=== PATIENT | female | born 1955 | race Caucasian/White ===

== ENCOUNTER → 2016-11-08 | Outpatient (CLI) | payer BC ==
[~2016-11-08] MED LIST: LAMO200T38 PO; PANT40TA PO; SYN100 PO
--- NOTE | 2016-11-08 18:01 | DIAGNOSTIC IMAGING REPORT ---
L FOOT MIN 3 VIEWS ROUTINE HISTORY: 61 years-old Female DISPLACED UNSPECIFIED FRACTURE OF L GREAT TOE known fracture of the left proximal phalanx with persistent pain. COMPARISON: None available. TECHNIQUE: 3 views of the left foot FINDINGS: There is a subacute fracture involving the mid and distal portions of the first proximal phalanx appears mildly comminuted and is nondisplaced and nonangulated without definite intra-articular extension. Mild soft tissue swelling is noted about the first digit and along the dorsal forefoot. Mild to moderate first MTP osteoarthritis. Degenerative changes are also noted throughout the interphalangeal joints. No additional acute fracture or dislocation. IMPRESSION: 1. Subacute appearing nondisplaced and non-angulated mildly comminuted fracture of the first proximal phalanx with mild associated soft tissue swelling. 2. Mild to moderate first MTP osteoarthritis. The above report was generated using voice recognition software. It may contain grammatical, syntax or spelling errors. Electronically signed by: Patrick Eddy M.D. 11/08/2016 6:00 PM Dictated Date/Time: 11/08/2016 5:57 PM
== END | disposition home or self-care (01) ==
LOC: C.RAD 17:06
PROVIDERS: ATTEND Family Medicine
DX: S92.402A Displaced unspecified fracture of left great toe, initial encounter for closed fracture (principal); X58.XXXA Exposure to other specified factors, initial encounter

== ENCOUNTER → 2016-11-22 | Outpatient (CLI) | payer BC ==
--- NOTE | 2016-11-22 17:28 | DIAGNOSTIC IMAGING REPORT ---
LEFT FOOT 3 VIEWS CLINICAL HISTORY: Healing fracture. FINDINGS: 3 views of left foot are compared to study dated 11/08/2016. The skeletal structures are osteopenic. There is a subacute appearing/healing spiral fracture through the midshaft of the first proximal phalanx. No additional fracture is seen. Mild arthritic change is seen at the first metatarsophalangeal joint. Mild soft tissue swelling is seen in the first toe. IMPRESSION: 1. No significant change in the appearance of a subacute appearing first proximal phalangeal fracture as compared to 11/08/2016. 2. Osteopenia and mild arthritic change as above. Electronically signed by: Shemar Salvador M.D. 11/22/2016 5:27 PM Dictated Date/Time: 11/22/2016 5:26 PM
== END | disposition home or self-care (01) ==
LOC: C.RAD 17:07
PROVIDERS: ATTEND Family Medicine
DX: S92.402A Displaced unspecified fracture of left great toe, initial encounter for closed fracture (principal); X58.XXXA Exposure to other specified factors, initial encounter

== ENCOUNTER 2020-03-23 19:07 | Observation (INO) ==
[2020-03-23] MEDS ORDERED: ASPIRIN CHEW 324 MG PO STA (19:57)
[2020-03-23] MEDS ORDERED: PANTOprazole 40 MG TAB PO STA (19:57)
[2020-03-23] MEDS ORDERED: ALUMINUM/MAGNESIUM SUSP 30 ML UDC PO STA (19:57)
[2020-03-23 20:23] LABS: Basophils # (auto) 0.02 K/uL (0-0.2); Basophils % (auto) 0.3 %; Eosinophils # (auto) 0.11 K/uL (0-0.5); Eosinophils % (auto) 1.5 %; Hemoglobin 15.4 g/dL (12.0-16.0); Immature Granulocytes # (auto) 0.01 K/uL (0.00-0.02); Immature Granulocytes % (auto) 0.1 %; Lymphocytes # (auto) 1.67 K/uL (1.2-3.4); Lymphocytes % (auto) 22.1 %; Mean Corpuscular Hemoglobin 27.3 pg (25-34); Mean Corpuscular Hgb Conc 34.2 g/dL (32-36); Mean Corpuscular Volume 79.6 fL (80-100); Mean Platelet Volume 9.8 fL (7.4-10.4); Monocytes # (auto) 0.51 K/uL (0.11-0.59); Monocytes % (auto) 6.8 %; Neutrophils # (auto) 5.22 K/uL (1.4-6.5); Neutrophils % (auto) 69.2 %; Platelet Count 246 K/uL (130-400); RDW Coefficient of Variation 14.3 % (11.5-14.5); RDW Standard Deviation 41.6 fL (36.4-46.3); Red Blood Count 5.65 M/uL (4.2-5.4); White Blood Count 7.54 K/uL (4.8-10.8)
--- NOTE | 2020-03-23 20:34 | Emergency Department Note ---
Impression & Plan Chest pain, Abnormal EKG ED Provider Note NAME: AGATA WHITE AGE: 64 SEX: F : 1955 ARRIVES VIA: Walk-In INFORMANT: Patient, ED PROVIDER(S): Nixon Álvarez DO CHIEF COMPLAINT: Chest pain HPI: The patient is a 64-year-old female who presented to the emergency department for an evaluation of chest pain. The patient describes retrosternal chest pain which radiates to her neck. She states the pain is sometimes worsened with food. She states the pain does not worsen with exertion. She states the pain is been ongoing for the last 24 hours. She started noticing pain into her neck and this is why she was concerned and presented to the emergency department. She does have a history of GERD but states this is different than her usual pain that she is experience with GERD. She denies having any fever or cough. She notices no swelling in her lower extremities. The patient notices no specific pleurisy or worsening of the pain with breathing. The patient has never had a work-up for coronary artery disease she is never had a stress test or heart catheterization. ROS: See above HPI for pertinent positives & negatives. A total of 10 systems reviewed and were otherwise negative. PAST MEDICAL HISTORY: See Below PAST SURGICAL HISTORY: See Below FAMILY HISTORY: See Below SOCIAL HISTORY: See Below HOME MEDICATIONS: See Below ALLERGIES: See Below VITALS: See Below PHYSICAL EXAMINATION: GENERAL: Patient is awake alert in no acute distress patient is resting comfortably and showing no signs of anxiety EYES: The conjunctivae are clear. The pupils are round and reactive. EARS, NOSE, MOUTH AND THROAT: The nose is without any evidence of any deformity. NECK: The neck is nontender and supple. RESPIRATORY: Normal respiratory effort is noted there is no evidence of wheezing rhonchi or rales CARDIOVASCULAR: Regular rate and rhythm noted there no murmurs rubs or gallops normal S1 normal S2. GASTROINTESTINAL: The abdomen is soft. Abdomen is nontender. MUSCULOSKELETAL/EXTREMITIES: There is no evidence of gross deformity full range of motion is noted in the hips and shoulders. SKIN: There is no obvious evidence of any rash. No calf tenderness was elicited. NEUROLOGIC: Patient is awake alert and oriented x3. MEDICAL DECISION MAKING: The patient is a 64-year-old female who presented to the emergency department for an evaluation of chest pain. The patient was found to have EKG changes that could be consistent with ischemia. Previous EKG did show similar changes but given the patient's complaints further laboratory and radiographic studies were obtained. The patient's troponin was negative despite having ongoing pain throughout the day. She was treated with aspirin and other medications in the emergency department. Her pain was not significantly improved. Given the patient's EKG findings and her other risk factors I discussed this case with the on-call [facility]. They have agreed to evaluate the patient in the emergency department for further management and disposition. The patient was agreeable to this plan. Triage Nursing notes reviewed. Prior medical records reviewed Vital Signs: reviewed and remarkable for elevated blood pressure. Differential diagnosis: Cardiac ischemia, aortic dissection, pulmonary embolism, pneumothorax, pneumonia, pericarditis, myocarditis, esophageal rupture, GERD, cholecystitis, pancreatitis, musculoskeletal, as well as other pathologies. ER treatment provided: See below Diagnostics interpreted by me: ECG: EKG was obtained in the emergency department. My interpretation is sinus tachycardia at 103 bpm. There was no ectopy. LVH was suggested by voltage criteria. Inferior and lateral ST depressions were noted with T wave abnorma lities. This was compared to a tracing from March 272011. The ST segment abnormalities are appreciated on the previous EKG. Cardiac Monitoring: An order was placed for continuous cardiac monitoring. The monitor shows a rate of 82 bpm with sinus rhythm. Laboratory studies: As stated above and show below. Imaging studies: See below Consultation(s): 2231: I discussed this case with Dr. Hsu who is on-call for the [facility]. 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 Required: No Beliefs That Will Affect Care: None Current Living Situation: Spouse Feels Safe at Home: Yes Assistive Devices: None Allergies Allergies Allergy/AdvReac Type Severity Reaction Status Date / Time No Known Allergies Allergy Unknown Verified 03/23/20 22:52 Home Meds Home Medications Medication Instructions Recorded Confirmed chlorthalidone 50 mg PO DAILY 03/23/20 03/23/20 cholecalciferol (vitamin D3) 0 mcg PO DAILY 03/23/20 03/23/20 [Vitamin D3] escitalopram oxalate 10 mg PO DAILY 03/23/20 03/23/20 hydroxyzine pamoate 50 mg PO HS PRN 03/23/20 03/23/20 lamotrigine 200 mg PO BID 03/23/20 03/23/20 levothyroxine 75 mcg PO DAILY 03/23/20 03/23/20 Results & Data (ED) Vital Signs Vital Signs - 24 hr 03/23/20 19:12 03/23/20 21:26 03/23/20 21:30 Temperature 36.5 C Temperature Source Temporal Artery Scan Pulse Rate 114 H 83 87 Pulse Rate [Right Radial] Pulse Rate from SpO2 Sensor 82 88 Respiratory Rate 20 23 19 Respiratory Effort / Characteristics Non-Labored Spontaneous Respiratory Depth Normal Blood Pressure 149/106 H Blood Pressure [Right Arm] Blood Pressure Mean 120 Blood Pressure Mean [Right Arm] Blood Pressure Position Sitting Pulse Oximetry 99 97 96 Oxygen Delivery Method Room Air Sepsis Recent Fever Within 48 Hours No Sepsis New/Unexplained Change in Mental Status No Sepsis Action Taken by Nursing No Action Required 03/23/20 21:34 03/23/20 21:35 03/23/20 21:40 Temperature Temperature Source Pulse Rate 92 H 94 H 87 Pulse Rate [Right Radial] Pulse Rate from SpO2 Sensor 92 H 93 H 87 Respiratory Rate 24 22 Respiratory Effort / Characteristics Respiratory Depth Blood Pressure 144/92 H Blood Pressure [Right Arm] Blood Pressure Mean 109 Blood Pressure Mean [Right Arm] Blood Pressure Position Pulse Oximetry 95 95 98 Oxygen Delivery Method Sepsis Recent Fever Within 48 Hours Sepsis New/Unexplained Change in Mental Status Sepsis Action Taken by Nursing 03/23/20 21:50 03/23/20 22:00 03/23/20 22:01 Temperature Temperature Source Pulse Rate 99 H 96 H 88 Pulse Rate [Right Radial] Pulse Rate from SpO2 Sensor 98 H 99 H 88 Respiratory Rate 18 18 Respiratory Effort / Characteristics Respiratory Depth Blood Pressure 129/90 Blood Pressure [Right Arm] Blood Pressure Mean 103 Blood Pressure Mean [Right Arm] Blood Pressure Position Pulse Oximetry 96 98 98 Oxygen Delivery Method Sepsis Recent Fever Within 48 Hours Sepsis New/Unexplained Change in Mental Status Sepsis Action Taken by Nursing 03/23/20 22:10 03/23/20 22:20 03/23/20 22:30 Temperature Temperature Source Pulse Rate 89 83 84 Pulse Rate [Right Radial] Pulse Rate from SpO2 Sensor 89 83 86 Respiratory Rate 17 19 19 Respiratory Effort / Characteristics Respiratory Depth Blood Pressure Blood Pressure [Right Arm] Blood Pressure Mean Blood Pressure Mean [Right Arm] Blood Pressure Position Pulse Oximetry 97 96 96 Oxygen Delivery Method Sepsis Recent Fever Within 48 Hours Sepsis New/Unexplained Change in Mental Status Sepsis Action Taken by Nursing 03/23/20 22:40 03/23/20 22:44 Temperature 36.7 C Temperature Source Oral Pulse Rate 93 H Pulse Rate [Right Radial] 101 H Pulse Rate from SpO2 Sensor 92 H Respiratory Rate 23 20 Respiratory Effort / Characteristics Respiratory Depth Blood Pressure Blood Pressure [Right Arm] 121/90 Blood Pressure Mean Blood Pressure Mean [Right Arm] 100 Blood Pressure Position Pulse Oximetry 98 95 Oxygen Delivery Method Room Air Sepsis Recent Fever Within 48 Hours Sepsis New/Unexplained Change in Mental Status Sepsis Action Taken by Assisted Medications Current Medication List: was personally reviewed by me Laboratory Data Attestation: I reviewed the patient's lab results. Result diagrams: 03/24/20 06:18 03/24/20 06:18 Lab Results 03/23/20 03/23/20 03/23/20 Range/Units 20:04 20:04 21:39 WBC 7.54 (4.8-10.8) K/uL RBC 5.65 H (4.2-5.4) M/uL Hgb 15.4 (12.0-16.0) g/dL Hct 45.0 (37-47) % MCV 79.6 L (80-100) fL MCH 27.3 (25-34) pg MCHC 34.2 (32-36) g/dL RDW Std Deviation 41.6 (36.4-46.3) fL RDW Coeff of Toshia 14.3 (11.5-14.5) % Plt Count 246 (130-400) K/uL MPV 9.8 (7.4-10.4) fL Immature Gran % (Auto) 0.1 % Neut % (Auto) 69.2 % Lymph % (Auto) 22.1 % [place] % (Auto) 6.8 % Eos % (Auto) 1.5 % Baso % (Auto) 0.3 % Neut # (Auto) 5.22 (1.4-6.5) K/uL Lymph # (Auto) 1.67 (1.2-3.4) K/uL [place] # (Auto) 0.51 (0.11-0.59) K/uL Eos # (Auto) 0.11 (0-0.5) K/uL Baso # (Auto) 0.02 (0-0.2) K/uL Immature Gran # (Auto) 0.01 (0.00-0.02) K/uL PT 10.6 (9.0-12.0) Seconds INR 1.0 (0.9-1.1) APTT 27.6 (21.0-31.0) Seconds PTT Ratio 1.0 D-Dimer < 190 (0-500) ug/L FEU Sodium 138 (136-145) mmol/L Potassium 3.2 L (3.5-5.1) mmol/L Chloride 101 (98-107) mmol/L Carbon Dioxide 28 (21-32) mmol/L Anion Gap 9.0 (3-11) BUN 17 (7-18) mg/dl Creatinine 1.11 (0.6-1.2) mg/dl Est Cr Clr Drug Dosing 54.5 ml/min Est GFR ( Amer) 61.2 Est GFR (Non-Af Amer) 52.8 BUN/Creatinine Ratio 15.0 (10-20) Glucose 102 H (70-99) mg/dl Calcium 11.0 H (8.5-10.1) mg/dl Magnesium 2.0 (1.8-2.4) mg/dl Total Bilirubin 0.7 (0.2-1) mg/dl AST 19 (15-37) U/L ALT 29 (12-78) U/L Alkaline Phosphatase 96 (45-117) U/L Troponin I < 0.015 (0-0.045) ng/ml Total Protein 8.6 H (6.4-8.2) gm/dl Albumin 4.8 (3.4-5.0) gm/dl Globulin 3.8 (2.5-4.0) gm/dl Albumin/Globulin Ratio 1.3 (0.9-2) Lipase 87 (73-393) U/L COVID-19 Eval Order SARS-CoV-2, RNA, NAAT (NEGATIVE) 03/23/20 03/23/20 Range/Units 22:00 22:00 WBC (4.8-10.8) K/uL RBC (4.2-5.4) M/uL Hgb (12.0-16.0) g/dL Hct (37-47) % MCV (80-100) fL MCH (25-34) pg MCHC (32-36) g/dL RDW Std Deviation (36.4-46.3) fL RDW Coeff of Toshia (11.5-14.5) % Plt Count (130-400) K/uL MPV (7.4-10.4) fL Immature Gran % (Auto) % Neut % (Auto) % Lymph % (Auto) % [place] % (Auto) % Eos % (Auto) % Baso % (Auto) % Neut # (Auto) (1.4-6.5) K/uL Lymph # (Auto) (1.2-3.4) K/uL [place] # (Auto) (0.11-0.59) K/uL Eos # (Auto) (0-0.5) K/uL Baso # (Auto) (0-0.2) K/uL Immature Gran # (Auto) (0.00-0.02) K/uL PT (9.0-12.0) Seconds INR (0.9-1.1) APTT (21.0-31.0) Seconds PTT Ratio D-Dimer (0-500) ug/L FEU Sodium (136-145) mmol/L Potassium (3.5-5.1) mmol/L Chloride (98-107) mmol/L Carbon Dioxide (21-32) mmol/L Anion Gap (3-11) BUN (7-18) mg/dl Creatinine (0.6-1.2) mg/dl Est Cr Clr Drug Dosing ml/min Est GFR ( Amer) Est GFR (Non-Af Amer) BUN/Creatinine Ratio (10-20) Glucose (70-99) mg/dl Calcium (8.5-10.1) mg/dl Magnesium (1.8-2.4) mg/dl Total Bilirubin (0.2-1) mg/dl AST (15-37) U/L ALT (12-78) U/L Alkaline Phosphatase (45-117) U/L Troponin I (0-0.045) ng/ml Total Protein (6.4-8.2) gm/dl Albumin (3.4-5.0) gm/dl Globulin (2.5-4.0) gm/dl Albumin/Globulin Ratio (0.9-2) Lipase (73-393) U/L COVID-19 Eval [facility] SARS-CoV-2, RNA, NAAT NEGATIVE (NEGATIVE) Administered Medications Chlorthalidone (Chlorthalidone 25 Mg Tab) 50 mg PO DAILY RITA Stop: 04/23/20 08:59 Last Admin: 03/24/20 07:36 Dose: 50 mg Documented by: [id number] Enoxaparin Sodium (Enoxaparin Inj 40 Mg/0.4 Ml Syr) 40 mg SQ QAM RITA Stop: 04/23/20 08:59 Last Admin: 03/24/20 07:36 Dose: 40 mg Documented by: [id number] Escitalopram Oxalate (Escitalopram Oxalate 10 Mg Tab) 10 mg PO DAILY RITA Stop: 04/23/20 08:59 Last Admin: 03/24/20 07:36 Dose: 10 mg Documented by: [id number] Lamotrigine (Lamotrigine 100 Mg Tab) 200 mg PO BID RITA Stop: 04/23/20 08:59 Last Admin: 03/24/20 07:36 Dose: 200 mg Documented by: [id number] Levothyroxine Sodium (Levothyroxine Sodium 75 Mcg Tablet) 75 mcg PO DAILYBB RITA Stop: 04/23/20 06:29 Last Admin: 03/24/20 05:59 Dose: 75 mcg Documented by: [id number] Potassium Chloride (Potassium Chloride Crtab 20 Meq Tabcr) 20 meq PO 1030 ONE Stop: 03/24/20 10:31 Last Admin: 03/24/20 10:01 Dose: 20 meq Documented by: [id number] Discontinued Medications Al Hydrox/Mg Hydrox/Simethicone (Aluminum/Magnesium Susp 30 Ml Udc) 30 ml PO NOW STA Stop: 03/23/20 19:58 Last Admin: 02/11/21 20:03 Dose: 30 ml Documented by: [id number] Aspirin (Aspirin Chew 324 Mg) 324 mg PO NOW STA Stop: 03/23/20 19:58 Last Admin: 03/23/20 20:12 Dose: 324 mg Documented by: [id number] Famotidine (Famotidine 40 Mg Tablet) 40 mg PO NOW ONE Stop: 03/24/20 01:42 Last Admin: 03/24/20 02:10 Dose: 40 mg Documented by: [id number] Lamotrigine (Lamotrigine 100 Mg Tab) 200 mg PO NOW ONE Stop: 03/24/20 01:42 Last Admin: 03/24/20 02:09 Dose: 200 mg Documented by: [id number] Pantoprazole Sodium (Pantoprazole 40 Mg Tab) 40 mg PO NOW STA Stop: 03/23/20 19:58 Last Admin: 03/23/20 20:03 Dose: 40 mg Documented by: [id number] Potassium Chloride (Potassium Chloride Crtab 20 Meq Tabcr) 40 meq PO ONE ONE Stop: 03/24/20 01:46 Last Admin: 03/24/20 02:09 Dose: 40 meq Documented by: [id number] Potassium Chloride (Potassium Chloride Crtab 20 Meq Tabcr) 40 meq PO ONE ONE Stop: 03/24/20 07:59 Last Admin: 03/24/20 08:31 Dose: 40 meq Documented by: [id number] Potassium Chloride (Potassium Chloride Crtab 20 Meq Tabcr) 20 meq PO 0830 ONE Stop: 03/24/20 08:31 Last Admin: 03/24/20 08:31 Dose: 20 meq Documented by: [id number] Imaging Data Radiologist's Impression: Patient: AGATA WHITE Admit Date: 03/23/20 MR#: [id number] Address1: [address] Acct ID:[id number] Address2: Date: 1955 [facility] Zip: [place] [address] Age: 64 Location: ED Sex: F Room/Bed: Att Phy: Diagnosis: CHEST PAIN Keira Phy: Esther Walsh CRNP Service Date: 03/23/20 [facility] Phy: Interpreting Phy: Shemar Salvador MD Admit Phy: Ordering Phy: Nixon Álvarez DO cc: ~ SINGLE VIEW CHEST CLINICAL HISTORY: Atypical chest pain. FINDINGS: An AP, portable, upright chest radiograph is compared to study dated 03/27/2011. The cardiomediastinal silhouette is unremarkable. There is platelike atelectasis the right lung base with mild elevation of right hemidiaphragm. Chronic interstitial thickening is similar to previous. No airspace consolidation or large pleural effusion is identified. No pneumothorax is seen. The skeletal structures are osteopenic. The bony thorax is grossly intact. Postoperative change is noted in both breasts. IMPRESSION: No acute cardiopulmonary abnormality. ACT 112: Negative or not required by law. Electronically signed by: Shemar Salvador M.D. 03/23/2020 8:57 PM Dictated: 03/23/202055 Transcribed: 03/23/202055 Blood Pressure Blood Pressure Findings: Elevated blood pressure Blood Pressure Disposition: further management by hospitalist Discharge Plan Visit Data Chief Complaint: Chest Pain Stated Complaint: CHEST PAIN ED Provider: Nixon Álvarez Discharge Problem: Chest pain, Abnormal EKG Patient Disposition: Admitted As Inpatient Condition: Good Discharge Instructions Interventions: ED Discharge Assessment Last Done: 03/24/20 00:40 Discharge Problem: Chest pain Qualifiers: Chest pain type: unspecified Qualified Code(s): R07.9 - Chest pain, unspecified
[2020-03-23 20:44] LABS: Alanine Aminotransferase 29 U/L (12-78); Albumin Level 4.8 gm/dl (3.4-5.0); Aspartate Aminotransferase 19 U/L (15-37); Blood Urea Nitrogen 17 mg/dl (7-18); Carbon Dioxide 28 mmol/L (21-32); Chloride 101 mmol/L (98-107); Creatinine Clr Calc Pharmacy 54.5 ml/min; Est GFR (African American) 61.2; Est GFR (Non-African American) 52.8; Glucose 102 mg/dl (70-99); Lipase 87 U/L (73-393); Potassium 3.2 mmol/L (3.5-5.1); Sodium 138 mmol/L (136-145)
[2020-03-23 20:49] LABS: Albumin Globulin Ratio 1.3 (0.9-2); Alkaline Phosphatase 96 U/L (45-117); Bilirubin,Total 0.7 mg/dl (0.2-1); Globulin 3.8 gm/dl (2.5-4.0); Total Protein 8.6 gm/dl (6.4-8.2); Troponin I < 0.015 ng/ml (0-0.045)
--- NOTE | 2020-03-23 20:58 | XRay Report ---
SINGLE VIEW CHEST CLINICAL HISTORY: Atypical chest pain. FINDINGS: An AP, portable, upright chest radiograph is compared to study dated 03/27/2011. The cardiom ediastinal silhouette is unremarkable. There is platelike atelectasis the right lung base with mild e levation of right hemidiaphragm. Chronic interstitial thickening is similar to previous. No airspace consolidation or large pleural effusion is identified. No pneumothorax is seen. The skeletal structur es are osteopenic. The bony thorax is grossly intact. Postoperative change is noted in both breasts. IMPRESSION: No acute cardiopulmonary abnormality. ACT 112: Negative or not required by law. Electronically signed by: Shemar Salvador M.D. 03/23/2020 8:57 PM
[2020-03-23 22:11] LABS: D Dimer < 190 ug/L FEU (0-500); Partial Thromboplastin Time 27.6 Seconds (21.0-31.0); Prothrombin Time 10.6 Seconds (9.0-12.0)
--- NOTE | 2020-03-23 23:12 | History & Physical Report ---
Date of Service March 23, 2020 Assessment & Plan (1) Chest pain: 64yo C female presenting with 10 days of atypical chest pain. Left sided, non-exertional, non-pleuritic. 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 History of HTN. EKG does have some ST abnormality. Troponin x 1 negative. Stress echo in 2007 with no inducible ischemia -Observation to medical with telemetry -Trend troponin -Check A1C and lipid panel Present on Admission?: Yes (2) Seizure: Well controlled. -Continue Lamotrigine 200mg po BID Present on Admission?: Yes (3) Hypothyroidism (acquired): Chronic -Check TSH with AM labs -Continue Synthroid Present on Admission?: Yes (4) Hypertension: BP well controlled -Continue Chlorthalidone F/E/N- Heplock. K repletion with 40meq po, repeat labs in AM, heart healthy diet as tolerated Ppx - Lovenox Code - Full Dispo - Observation to medical with telemetry Present on Admission?: Yes History of Present Illness Chief Complaint: left sided chest pain Primary Care Provider: CLAUDIA Page Ellen Guzmán is a 64yo female with history of Seizure, Hypothyroidism and HTN presenting with two days of left sided chest pain with radiation across anterior chest and up left neck ongoing for the last 2 days. Pain is non-positional, non-exertional and non-pleuritic. Also with ARIAS, nausea. Also with some left shoulder pain. Mild diarrhea. No history of CAD, arrhythmia, CHF. She had a stress test years ago which was unremarkable. Remote history of breast cancer s/p bilateral mastectomy with breast tissue expanders in place. She was considering reconstructive surgery but does not wish to pursue that now. 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 She was to have it removed by a physician in [place], however, has been unable to do so due to Covid-19 pandemic. Allergies Allergy/AdvReac Type Severity Reaction Status Date / Time No Known Allergies Allergy Unknown Verified 03/23/20 22:52 Home Medications Medication Instructions Recorded Confirmed Type chlorthalidone 50 mg PO DAILY 03/23/20 03/23/20 History cholecalciferol (vitamin D3) 0 mcg PO DAILY 03/23/20 03/23/20 History [Vitamin D3] escitalopram oxalate 10 mg PO DAILY 03/23/20 03/23/20 History hydroxyzine pamoate 50 mg PO HS PRN 03/23/20 03/23/20 History lamotrigine 200 mg PO BID 03/23/20 03/23/20 History levothyroxine 75 mcg PO DAILY 03/23/20 03/23/20 History Past Med/Surg History Medical History (Updated 03/23/20 @ 23:46 by Usha Hsu DO) Breast cancer s/p mastectomy GERD (gastroesophageal reflux disease) Hypertension Hypothyroidism (acquired) Seizure Surgical History (Updated 03/23/20 @ 23:09 by Usha Hsu DO) History of section History of hysterectomy History of mastectomy Family History (Updated 03/23/20 @ 23:09 by Usha Hsu DO) Other Coronary heart disease Diabetes Social History Smoking Status: Never smoker Hx Alcohol Use: No Hx Substance Use: No Preferred Language: Swedish Communication Ability: Effective Water Service Supervisor Required: No Beliefs That Will Affect Care: None Current Living Situation: Spouse Other Information That Helps Us Care for You: No Feels Safe at Home: Yes Safety Concerns: Feels Safe At This Time Assistive Devices: None Review of Systems Review of Systems: All systems reviewed & are unremarkable except as noted in HPI & below +shoulder pain +diarrhea +nausea Physical Exam Physical Exam: General: patient resting comfortably, NAD, non-toxic in appearance, AA&O x 4 Skin: warm, dry, intact, no rashes or lesions HEENT: NC/AT, PERRL, EOMI, anicteric sclera, conjunctiva without injection, ex ternal ear normal to inspection and nontender, nares patent, moist mucus membranes, dentition intact, no oropharyngeal lesions, neck supple, trachea midline, no LAD, no thyromegaly, no JVD Heart: +S1/S2, regular, no m/r/g, s/p bilateral mastectomy, breast tissue expanders palpable, non-tender Lungs: equal air entry bilaterally, no rales/rhonchi/wheezes Abd: +BS, soft, NT/ND, no masses/organomegaly/ascites Ext: warm, 2+ pulses in UE/LE bilaterally, no clubbing/cyanosis or edema Neuro: nonfocal, patient AA&O x 4, speech intact, no facial droop, moving all extremities on command with equal strength 5/5 Results & Data Results & Data ([facility]) Vital Signs (Past 12 Hours) Vital Signs Temp Pulse Pulse Resp BP BP Pulse Ox 03/23/20 22:44 36.7 C 101 H 20 121/90 95 03/23/20 22:40 93 H 23 98 03/23/20 22:30 84 19 96 03/23/20 22:20 83 19 96 03/23/20 22:10 89 17 97 03/23/20 22:01 88 129/90 98 03/23/20 22:00 96 H 18 98 03/23/20 21:50 99 H 18 96 03/23/20 21:40 87 98 03/23/20 21:35 94 H 22 95 03/23/20 21:34 92 H 24 144/92 H 95 03/23/20 21:30 87 19 96 03/23/20 21:26 83 23 97 03/23/20 19:12 36.5 C 114 H 20 149/106 H 99 Laboratory Results Lab Results 03/23/20 03/23/20 03/23/20 Range/Units 20:04 20:04 21:39 WBC 7.54 (4.8-10.8) K/uL RBC 5.65 H (4.2-5.4) M/uL Hgb 15.4 (12.0-16.0) g/dL Hct 45.0 (37-47) % MCV 79.6 L (80-100) fL MCH 27.3 (25-34) pg MCHC 34.2 (32-36) g/dL RDW Std Deviation 41.6 (36.4-46.3) fL RDW Coeff of Toshia 14.3 (11.5-14.5) % Plt Count 246 (130-400) K/uL MPV 9.8 (7.4-10.4) fL Immature Gran % (Auto) 0.1 % Neut % (Auto) 69.2 % Lymph % (Auto) 22.1 % Woodson % (Auto) 6.8 % Eos % (Auto) 1.5 % Baso % (Auto) 0.3 % Neut # (Auto) 5.22 (1.4-6.5) K/uL Lymph # (Auto) 1.67 (1.2-3.4) K/uL Woodson # (Auto) 0.51 (0.11-0.59) K/uL Eos # (Auto) 0.11 (0-0.5) K/uL Baso # (Auto) 0.02 (0-0.2) K/uL Immature Gran # (Auto) 0.01 (0.00-0.02) K/uL PT 10.6 (9.0-12.0) Seconds INR 1.0 (0.9-1.1) APTT 27.6 (21.0-31.0) Seconds PTT Ratio 1.0 D-Dimer < 190 (0-500) ug/L FEU Sodium 138 (136-145) mmol/L Potassium 3.2 L (3.5-5.1) mmol/L Chloride 101 (98-107) mmol/L Carbon Dioxide 28 (21-32) mmol/L Anion Gap 9.0 (3-11) BUN 17 (7-18) mg/dl Creatinine 1.11 (0.6-1.2) mg/dl Est Cr Clr Drug Dosing 54.5 ml/min Est GFR ( Amer) 61.2 Est GFR (Non-Af Amer) 52.8 BUN/Creatinine Ratio 15.0 (10-20) Glucose 102 H (70-99) mg/dl Calcium 11.0 H (8.5-10.1) mg/dl Total Bilirubin 0.7 (0.2-1) mg/dl AST 19 (15-37) U/L ALT 29 (12-78) U/L Alkaline Phosphatase 96 (45-117) U/L Troponin I < 0.015 (0-0.045) ng/ml Total Protein 8.6 H (6.4-8.2) gm/dl Albumin 4.8 (3.4-5.0) gm/dl Globulin 3.8 (2.5-4.0) gm/dl Albumin/Globulin Ratio 1.3 (0.9-2) Lipase 87 (73-393) U/L COVID-19 Eval Order SARS-CoV-2, RNA, NAAT (NEGATIVE) 03/23/20 03/23/20 Range/Units 22:00 22:00 WBC (4.8-10.8) K/uL RBC (4.2-5.4) M/uL Hgb (12.0-16.0) g/dL Hct (37-47) % MCV (80-100) fL MCH (25-34) pg MCHC (32-36) g/dL RDW Std Deviation (36.4-46.3) fL RDW Coeff of Toshia (11.5-14.5) % Plt Count (130-400) K/uL MPV (7.4-10.4) fL Immature Gran % (Auto) % Neut % (Auto) % Lymph % (Auto) % Woodson % (Auto) % Eos % (Auto) % Baso % (Auto) % Neut # (Auto) (1.4-6.5) K/uL Lymph # (Auto) (1.2-3.4) K/uL Woodson # (Auto) (0.11-0.59) K/uL Eos # (Auto) (0-0.5) K/uL Baso # (Auto) (0-0.2) K/uL Immature Gran # (Auto) (0.00-0.02) K/uL PT (9.0-12.0) Seconds INR (0.9-1.1) APTT (21.0-31.0) Seconds PTT Ratio D-Dimer (0-500) ug/L FEU Sodium (136-145) mmol/L Potassium (3.5-5.1) mmol/L Chloride (98-107) mmol/L Carbon Dioxide (21-32) mmol/L Anion Gap (3-11) BUN (7-18) mg/dl Creatinine (0.6-1.2) mg/dl Est Cr Clr Drug Dosing ml/min Est GFR ( Amer) Est GFR (Non-Af Amer) BUN/Creatinine Ratio (10-20) Glucose (70-99) mg/dl Calcium (8.5-10.1) mg/dl Total Bilirubin (0.2-1) mg/dl AST (15-37) U/L ALT (12-78) U/L Alkaline Phosphatase (45-117) U/L Troponin I (0-0.045) ng/ml Total Protein (6.4-8.2) gm/dl Albumin (3.4-5.0) gm/dl Globulin (2.5-4.0) gm/dl Albumin/Globulin Ratio (0.9-2) Lipase (73-393) U/L COVID-19 Eval Order Covid19 [facility] SARS-CoV-2, RNA, NAAT NEGATIVE (NEGATIVE) Diagnostic Findings SINGLE VIEW CHEST CLINICAL HISTORY: Atypical chest pain. FINDINGS: An AP, portable, upright chest radiograph is compared to study dated 03/27/2011. The cardiomediastinal silhouette is unremarkable. There is platelike atelectasis the right lung base with mild elevation of right hemidiaphragm. Chronic interstitial thickening is similar to previous. No airspace consolidation or large pleural effusion is identified. No pneumothorax is seen. The skeletal structures are osteopenic. The bony thorax is grossly intact. Postoperative change is noted in both breasts. IMPRESSION: No acute cardiopulmonary abnormality. ACT 112: Negative or not required by law. Electronically signed by: Shemar Salvador M.D. 03/23/2020 8:57 PM Dictated: 03/23/202055Transcribed: 03/23/202055 ECG Additional Comments: EKG with ST at 103, normal axis, VT=310, QRS=84, WCl=927, ST depressions in V2-V4 PG Care Time/CCT Total # of Minutes Spent Total Time Spent with Patient: Total time spent is greater than 50% in coordination of care (as documented) at patient's floor/unit and/or counseling patient: Coding Level of Care Code 24403 OBS Care - Level 3 Diagnoses Chest pain R07.9 Chest pain type: unspecified Seizure R56.9 Hypothyroidism (acquired) E03.9 Hypertension I10 Hypertension type: essential hypertension (1) Chest pain Chest pain type: unspecified Qualified Code(s): R07.9 - Chest pain, unspecified (2) Hypertension Hypertension type: essential hypertension Qualified Code(s): I10 - Essential (primary) hypertension
[2020-03-24] MEDS ORDERED: hydrOXYzine HCl 25 MG TAB PO PRN (01:30)
[2020-03-24] MEDS ORDERED: FAMOTIDINE 40 MG TABLET PO ONE (01:41)
[2020-03-24] MEDS ORDERED: lamoTRIgine 100 MG TAB PO ONE (01:41)
[2020-03-24] MEDS ORDERED: POTASSIUM CHLORIDE CRTAB 20 MEQ TABCR PO ONE ×4 (01:45→10:30)
[2020-03-24] MEDS ORDERED: LEVOTHYROXINE SODIUM 75 MCG TABLET PO SCH (06:30)
[2020-03-24 06:46] LABS: Basophils # (auto) 0.02 K/uL (0-0.2); Basophils % (auto) 0.3 %; Eosinophils # (auto) 0.12 K/uL (0-0.5); Eosinophils % (auto) 1.8 %; Hematocrit (blood only) 40.5 % (37-47); Hemoglobin 13.9 g/dL (12.0-16.0); Immature Granulocytes # (auto) 0.02 K/uL (0.00-0.02); Immature Granulocytes % (auto) 0.3 %; Lymphocytes # (auto) 2.33 K/uL (1.2-3.4); Lymphocytes % (auto) 34.4 %; Mean Corpuscular Hemoglobin 27.3 pg (25-34); Mean Corpuscular Hgb Conc 34.3 g/dL (32-36); Mean Corpuscular Volume 79.4 fL (80-100); Mean Platelet Volume 9.6 fL (7.4-10.4); Monocytes # (auto) 0.48 K/uL (0.11-0.59); Monocytes % (auto) 7.1 %; Neutrophils # (auto) 3.81 K/uL (1.4-6.5); Neutrophils % (auto) 56.1 %; Platelet Count 214 K/uL (130-400); RDW Coefficient of Variation 14.3 % (11.5-14.5); RDW Standard Deviation 41.4 fL (36.4-46.3); White Blood Count 6.78 K/uL (4.8-10.8)
[2020-03-24 07:21] LABS: BUN Creatinine Ratio 14.9 (10-20); Blood Urea Nitrogen 15 mg/dl (7-18); Carbon Dioxide 31 mmol/L (21-32); Chloride 104 mmol/L (98-107); Creatinine Clr Calc Pharmacy 61.2 ml/min; Est GFR (African American) 70.3; Est GFR (Non-African American) 60.6; Glucose 100 mg/dl (70-99); Potassium 3.4 mmol/L (3.5-5.1); Sodium 140 mmol/L (136-145)
[2020-03-24 07:32] LABS: Chol HDL Ratio 3; Cholesterol 228 mg/dl (0-200); HDL Cholesterol 67 mg/dl; LDL Cholesterol Calculated 143 mg/dl; Triglycerides 89 mg/dl (0-150); Troponin I < 0.015 ng/ml (0-0.045); VLDL Cholesterol 18 mg/dl
[2020-03-24 07:37] LABS: Estimated Average Glucose 126 mg/dl
[2020-03-24] MEDS ORDERED: lamoTRIgine 100 MG TAB PO SCH (09:00)
[2020-03-24] MEDS ORDERED: CHLORTHALIDONE 25 MG TAB PO SCH (09:00)
[2020-03-24] MEDS ORDERED: ESCITALOPRAM OXALATE 10 MG TAB PO SCH (09:00)
[2020-03-24] MEDS ORDERED: ENOXAPARIN INJ 40 MG/0.4 ML SYR SQ SCH (09:00)
--- NOTE | 2020-03-24 15:07 | XCELERA ---
[id number] \\[id number]_[id number]}___[id number]
--- NOTE | 2020-03-24 15:17 | XCELERA ---
[id number] \\[id number]\PDF_[id number]}___[id number].pdf
--- NOTE | 2020-03-24 16:14 | Discharge Summary ---
Date of Service March 24, 2020 Admission HPI Per Admitting Provider Ellen Guzmán is a 64yo female with history of Seizure, Hypothyroidism and HTN presenting with two days of left sided chest pain with radiation across anterior chest and up left neck ongoing for the last 2 days. Pain is non-positional, non-exertional and non-pleuritic. Also with ARIAS, nausea. Also with some left shoulder pain. Mild diarrhea. No history of CAD, arrhythmia, CHF. She had a stress test years ago which was unremarkable. Remote history of breast cancer s/p bilateral mastectomy with breast tissue expanders in place. She was considering reconstructive surgery but does not wish to pursue that now. 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 She was to have it removed by a physician in [place], however, has been unable to do so due to Covid-19 pandemic. Admission Exam Per Admitting Provider General: patient resting comfortably, NAD, non-toxic in appearance, AA&O x 4 Skin: warm, dry, intact, no rashes or lesions HEENT: NC/AT, PERRL, EOMI, anicteric sclera, conjunctiva without injection, external ear normal to inspection and nontender, nares patent, moist mucus membranes, dentition intact, no oropharyngeal lesions, neck supple, trachea midline, no LAD, no thyromegaly, no JVD Heart: +S1/S2, regular, no m/r/g, s/p bilateral mastectomy, breast tissue expanders palpable, non-tender Lungs: equal air entry bilaterally, no rales/rhonchi/wheezes Abd: +BS, soft, NT/ND, no masses/organomegaly/ascites Ext: warm, 2+ pulses in UE/LE bilaterally, no clubbing/cyanosis or edema Neuro: nonfocal, patient AA&O x 4, speech intact, no facial droop, moving all extremities on command with equal strength 5/5 Principal Diagnosis GERD Discharge Exam Constitutional WD/WN, vitals as above no acute distress Respiratory normal respiratory effort, lungs clear to auscultation no labored breathing Cardiovascular RRR, no murmur, no edema Heart Sounds: normal S1 and normal S2 Gastrointestinal (Abdomen) normal bowel sounds, soft, nontender, no hepatosplenomegaly Musculoskeletal no cyanosis or clubbing, extremities motor strength 5/5 Skin no rashes, warm and dry Psychiatric A+Ox3, euthymic affect Discharge Data Allergies Allergy/AdvReac Type Severity Reaction Status Date / Time No Known Allergies Allergy Unknown Verified 03/23/20 22:52 Consultations 03/23/20 22:02 ED Decision to Admit Stat Hospital Course (1) Chest pain: Ellen Guzmán is a 64-year-old female with PMH of HTN, hypothyroidism, GERD, seizure disorder, breast cancer who c/o 2 days of left-sided, non- exertional, non-pleuritic chest pain. -Her ECG was not concerning for acute cardiac causes. she had negative cardiac enzymes, and had a normal stress test. -Her chest pain was relieved when she took Pepcid. -Additionally she has breast tissue expanders in place that were supposed to be removed some months ago in [place], but due to the pandemic she has been unable to have this done. She says the lead business analyst on the left side is broken and has been bothering her as of late. -Due to her full negative workup and other likely explanations (breast lead business analyst & reflux), she was discharged with Pepcid. -She was instructed to follow up with her PCP and encouraged to reach out to her provider for removal of breast expanders. All other chronic diseases were managed with home medication regimens while admitted. (2) Hypertension: (3) Hypothyroidism (acquired): (4) GERD (gastroesophageal reflux disease): (5) Seizure: Total Time Total Time Spent Total Time Spent (In Minutes): see Attending attestation Discharge Plan Discharge Items Patient Disposition: Home - Self-Care Reason For Visit: CHEST PAIN Discharge Diagnosis: Gastroesophageal reflux Condition on Discharge: Good Activity: Resume your previous activity Non-emergency contact: Primary Care Provider Call non-emergency contact if: you have any medication questions and your symptoms worsen Follow-up/Referrals: Esther Walsh CRNP [Primary Care Provider] - Diet: Heart Healthy Addtl Attending Provider Instructions: You were admitted to [facility] for complaints of chest pain. While admitted, your electrocardiogram was not concerning for acute cardiac causes, you had negative cardiac enzymes, and had a stress test done, which was normal. As you mentioned, your discomfort resolved when you took Pepcid. As such, we will discharge you with a prescription for this. Please follow up with your primary care provider to discuss your hospitalization and continued treatment for gastroesophageal reflux. We also recommend that you follow up regarding your breast tissue expanders. If you have new or worsening symptoms, please seek emergency medical care. Pending Studies at Discharge: No Stand-Alone Forms: [facility], Smoking Cessation Medications and DC Order Prescriptions: New famotidine 20 mg tablet 20 mg PO BID 42 Days Qty: 84 RF: 0 Continued lamotrigine 200 mg tablet 200 mg PO BID RF: 0 chlorthalidone 50 mg tablet 50 mg PO DAILY RF: 0 levothyroxine 75 mcg tablet 75 mcg PO DAILY RF: 0 hydroxyzine pamoate 25 mg capsule 50 mg PO HS PRN (Reason: Sleep) RF: 0 escitalopram oxalate 10 mg tablet 10 mg PO DAILY RF: 0 cholecalciferol (vitamin D3) [Vitamin D3] 10 mcg (400 unit) Capsule 0 mcg PO DAILY RF: 0 Discharge Orders: Discharge Order (Routine); Ordered 03/24/20 Ordered By: Pasquale Cedillo/Other Patient Handouts: 5 Steps for Eating Healthier, A1C Admission Data Admit Date/Time: 03/23/20 23:00 Attending Provider: Tamara Kim Admit Provider: Usha Hsu Primary Care Provider: Esther Walsh Other Providers: Usha Hsu Other Interventions: Discharge Summary Assessment (RN) Last Done: 03/24/20 16:15 Supervising Physician Co-Signing Physician Notes Resident Physician Supervision Note: I independently interviewed and examined the patient and verified the santa history and physical, reviewed labs and image studies, discussed the case with the resident Dr. Carpenter and agree with the findings and care plan. Resident Activity Tracking Resident Involvement: Resident Care Provided Care Provided: Adult Hospital Medicine
--- NOTE | 2020-03-24 17:59 | Electrocardiogram Report ---
Test Reason : Blood Pressure : / mmHG Vent. Rate : 103 BPM Atrial Rate : 103 BPM P-R Int : 160 ms QRS Dur : 084 ms QT Int : 342 ms P-R-T Axes : 082 068 025 degrees QTc Int : 448 ms Sinus tachycardia Nonspecific ST and T wave abnormality Abnormal ECG When compared with ECG of 27-MAR-2011 19:48, No significant change was found Confirmed by Nixon Chatman ([id number]) on 03/24/2020 5:59:13 PM Referred By: REFERRED SELF Confirmed By:Nixno Chatman
--- NOTE | 2020-03-24 18:02 | Electrocardiogram Report ---
Test Reason : Blood Pressure : / mmHG Vent. Rate : 087 BPM Atrial Rate : 087 BPM P-R Int : 164 ms QRS Dur : 084 ms QT Int : 374 ms P-R-T Axes : 036 059 008 degrees QTc Int : 450 ms Normal sinus rhythm Nonspecific ST and T wave abnormality Abnormal ECG When compared with ECG of 23-MAR-2020 19:19, (unconfirmed) No significant change was found Confirmed by Nixon Chatman ([id number]) on 03/24/2020 6:02:32 PM Referred By: REFERRED SELF Confirmed By:Nixon Chtaman
== END 2020-03-24 17:12 | disposition home or self-care (01) ==
LOC: 2N 19:07 → ED 19:07 → SUATTDRO 23:00 → 2N 03-24 00:40